=== PATIENT | female | born 1960 | race Caucasian/White ===

== ENCOUNTER 2023-03-21 08:03 | Day surgery (SDC) | payer BC ==
[2023-03-19 13:12] VITALS: BMI 26.6
[2023-03-21] MEDS ORDERED: PROPOFOL 160 ML ONE (08:27)
[2023-03-21 09:28] VITALS: PULSE 64; TEMP 97.9
[2023-03-21 09:31] VITALS: BP 94/82; RESP 18
== END 2023-03-21 09:40 | disposition home or self-care (01) ==
LOC: FASU-ENDO 08:03
PROVIDERS: ATTEND Internal Medicine Gastroenterology
PROC: 0DJD8ZZ Inspection of Lower Intestinal Tract, Via Natural or Artificial Opening Endoscopic (ICD-10-PCS; principal; 2023-03-21 08:51)
DX: Z12.11 Encounter for screening for malignant neoplasm of colon (principal); K57.30 Diverticulosis of large intestine without perforation or abscess without bleeding; Z80.0 Family history of malignant neoplasm of digestive organs